=== PATIENT | male | born 1955 | race Caucasian/White ===

== ENCOUNTER → 2017-02-19 | Outpatient (CLI) | payer OTHER ==
--- NOTE | 2017-02-19 13:38 | RAD ---
Indication: Chronic sinusitis. Axial imaging through the paranasal sinuses was performed without contrast. Sagittal and coronal reformations were also performed. The frontal sinus is clear. Ethmoid air cells and sphenoid sinus are clear. Mastoids are well aerated. The maxillary sinuses are clear apart from trace mucosal thickening on the right. The ostiomeatal complexes are patent bilaterally. The nasal septum is midline. Impression: No evidence of sinusitis. PQRS Compliance Statement: One or more of the following individualized dose reduction techniques were utilized for this examination: 1. Automated exposure control 2. Adjustment of the mA and/or kV according to patient size 3. Use of iterative reconstruction technique
== END | disposition home or self-care (01) ==
LOC: CT 13:06
PROVIDERS: ATTEND Otolaryngology
DX: J32.9 Chronic sinusitis, unspecified (principal)
CPT/HCPCS: 70486

== ENCOUNTER 2020-03-14 16:39 | Emergency (ER) | payer SELFPAY ==
[~2020-03-14] VITALS: Ht 167.6 cm; Wt 57.6 kg
--- NOTE | 2020-03-14 17:11 | PHYS DOC ---
Past History Past Medical History: Anxiety, COPD, CVA (EDUARDO PUCKETT DO) Past Surgical History: No Surgical History (EDUARDO PUCKETT DO) Alcohol Use: Occasionally Additional Alcohol Information: one beer a night (EDUARDO PUCKETT DO) General Adult EDM: Chief Complaint: LOWER EXT PAIN HPI: HPI: Patient is a 64-year-old male who presented to ER today for evaluation of right leg swelling and pain for about 5 days. Patient denies any injury, no trouble breathing, no cough. Patient has history of COPD, he is a smoker. Patient denies any history of blood clot disorder, no recent history of travel or operation. Patient denies any fever, no chest pain. Patient denies any personal or family history of blood clot disorder. (EDUARDO PUCKETT DO) Review of Systems: Review of Systems: Constitutional: Denies fever or chills Eyes: Denies change in visual acuity HENT: Denies nasal congestion or sore throat Respiratory: Denies cough or shortness of breath Cardiovascular: Denies chest pain or edema GI: Denies abdominal pain, nausea, vomiting, bloody stools or diarrhea : Denies dysuria Musculoskeletal: Denies back pain, POSITIVE FOR RIGHT LEG SWELLING AND PAIN Integument: Denies rash Neurologic: Denies headache, focal weakness or sensory changes Endocrine: Denies polyuria or polydipsia Lymphatic: Denies swollen glands Psychiatric: Denies depression or anxiety (EDUARDO PUCKETT DO) Heart Score: Risk Factors: Risk Factors: DM, Current or recent (<one month) smoker, HTN, HLP, family history of CAD, obesity. Risk Scores: Score 0 - 3: 2.5% MACE over next 6 weeks - Discharge Home Score 4 - 6: 20.3% MACE over next 6 weeks - Admit for Clinical Observation Score 7 - 10: 72.7% MACE over next 6 weeks - Early Invasive Strategies (EDUARDO PUCKETT DO) Allergies: Allergies: Allergies Uncoded Allergies Type Severity Reaction Last Updated Verified steriods Allergy Unknown 03/14/20 (EDUARDO PUCKETT DO) Physical Exam: PE: Constitutional: Well developed, well nourished, no acute distress, non-toxic appearance. [] HENT: Normocephalic, atraumatic, bilateral external ears normal, oropharynx moist, no oral exudates, nose normal. [] Eyes: PERRLA, EOMI, conjunctiva normal, no discharge. [] Neck: Normal range of motion, no tenderness, supple, no stridor. [] Cardiovascular:Heart rate regular rhythm, no murmur [] Lungs & Thorax: Bilateral breath sounds clear to auscultation [] Abdomen: Bowel sounds normal, soft, no tenderness, no masses, no pulsatile masses. [] Skin: Warm, dry, no erythema, no rash. [] Back: No tenderness, no CVA tenderness. [] Extremities: The entire right leg, ankle and foot are swollen, tender to palpation, right calf is swollen and tender, mild erythema with pitting edema. There is palpable dorsalis pedis pulse, the swelling is spreading to just below right knee. The right knee joint is stable. Neurologic: Alert and oriented X 3, normal motor function, normal sensory function, no focal deficits noted. [] Psychologic: Affect normal, judgement normal, mood normal. [] (EDUARDO PUCKETT DO) Current Patient Data: Vital Signs: Vital Signs Date Time Temp Pulse Resp B/P (MAP) Pulse Ox O2 Delivery O2 Flow Rate FiO2 03/14/20 16:53 98.7 88 18 171/105 (127 99 Room Air (EDUARDO PUCKETT DO) EKG: EKG: [] (EDUARDO PUCKETT DO) Radiology/Procedures: Radiology/Procedures: [] (EDUARDO PUCKETT DO) Radiology/Procedures: [place] [address] IMAGING REPORT Signed PATIENT: ARNOLD CARTAGENA ACCOUNT: [id number] : 1955 LOCATION: ER AGE: 64 SEX: M EXAM STATUS: REG ER ORD. PHYSICIAN: EDUARDO PUCKETT DO REASON: RIGHT LEG SWELLING AND PAIN FOR 5 DAYS PROCEDURE: VENOUS LOWER EXT BILATERAL Exam: Bilateral lower extremity venous duplex study INDICATION: Right leg swelling and pain for 5 days TECHNIQUE: Using a combination of real-time ultrasound imaging and color-flow and pulse Doppler imaging techniques along with graded compression and augmentation, duplex evaluation of the deep venous systems of bilateral lower extremity was performed. Multiple images were obtained. Findings: Occlusive thrombus noted throughout the superficial femoral vein, femoral vein, popliteal vein and posterior tibial vein on the right. There is no sonographic evidence for deep venous thrombosis involving the visualized deep venous structures of the left lower extremity. IMPRESSION: 1. Occlusive thrombus throughout the right lower extremity. 2. No acute DVT in the left lower extremities. FOR INTERNAL CODING PURPOSES Critical result: Findings discussed with Alex at 03/14/2020 5:50 PM. RESULT CODE: (C) Electronically signed by: Tiffany Dennis MD (03/14/2020 5:51 PM) [id number] DICTATED AND SIGNED BY: TIFFANY DENNIS MD DATE: 03/14/20 175 CC: COURTNEY TREVIZO MD; EDUARDO PUCKETT DO ~ [address] [address] IMAGING REPORT Signed PATIENT: ARNOLD CARTAGENA ACCOUNT: [id number] : 1955 LOCATION: ER AGE: 64 SEX: M EXAM STATUS: REG ER ORD. PHYSICIAN: BERYL GARCIA MD REASON: dyspnea, DVT PROCEDURE: CT ANGIOGRAPHY CHEST CT ANGIOGRAPHY CHEST INDICATION: Reason: dyspnea, DVT / Spl. Instructions: GFR 63 / History: . Comparison: CT chest 07/03/2012. TECHNIQUE: Following the uneventful administration of intravenous contrast, 100 cc Omnipaque 350, axial CT sections were obtained through the lungs and upper abdomen. Multiplanar reconstructions and MIP images were obtained. PQRS compliance statement: One or more of the following individualized dose reduction techniques were utilized for this examination: 1. Automated exposure control 2. Adjustment of the mA and/or kV according to patient size 3. Use of iterative reconstruction technique FINDINGS: Pulmonary arteries: No evidence of pulmonary thromboembolic disease. Lungs and Airways: Biapical subpleural opacities, greater on the left. Paraseptal and centrilobular emphysema. No abnormality of the central airways. Pleura: The pleural spaces are normal. Heart and Mediastinum: The visualized thyroid is normal in size and attenuation. No axillary or supraclavicular lymphadenopathy. Mildly enlarged right hilar lymph nodes, for example right hilar lymph node measuring 1.0 cm (series 4 image 80). The cardiac size. No pericardial effusion. Coronary artery atherosclerotic disease. Atherosclerosis of the thoracic aorta. Ectatic descending thoracic aorta measures 3.6 cm in diameter at the diaphragmatic hiatus. Abdomen: Hepatic and splenic granulomas. Bones and Soft Tissues: Degenerative changes of the spine.. IMPRESSION: 1. No evidence of pulmonary thromboembolic disease. 2. Biapical opacities, greater on the left. While this probably represents asymmetric subpleural fibrosis, a 3-6 month follow-up chest CT should be considered to ensure stability given emphysema. 3. Mildly enlarged right hilar lymph nodes of indeterminate etiology. Attention on follow-up imaging. Electronically signed by: Lupillo Gibbons MD (03/14/2020 6:41 PM) [facility] (BERYL GARCIA MD) Course & Med Decision Making: Course & Med Decision Making Pertinent Labs and Imaging studies reviewed. (See chart for details) Patient's care is endorsed to Dr. Olegario Johnson at shift change, awaiting for lab work and venous doppler. (EDUARDO PUCKETT DO) Course & Med Decision Making See Dr. Puckett notes for details. Pt. Admit to Dr. Ellsworth/ Dr. Noriega oncjs - observation status, start on Lovenox 60 bid, and XCarelto 20 mg this evening meal. Plan continue 20 mg daily with evening meal x 21 days, then 10 mg daily x 6 months. Reduce risk behaviors tobacco use ect. Impression: 1. Occlusive DVT Rt. Lower Ext. 2. Dyspnea 3. Emphysema 4. Hilar Adenopathy Rt 5. Anemia Hgb- 12.7 (BERYL GARCIA MD) Dragon Disclaimer: Dragon Disclaimer: This electronic medical record was generated, in whole or in part, using a voice recognition dictation system. (EDUARDO PUCKETT DO) Departure Departure: Impression: Primary Impression: Right leg swelling Condition: STABLE Referrals: COURTNEY TREVIZO MD (PCP) Scripts Rivaroxaban (XARELTO) 20 Mg Tablet 20 MG PO DAILYWSUP for dvt for 21 Days, #21 TAB Prov: BERYL GARCIA MD 03/14/20 Rivaroxaban (XARELTO) 10 Mg Tablet 10 MG PO DAILYWSUP for dvt prophylaxis for 90 Days, #90 TAB Prov: BERYL GARCIA MD 03/14/20 Dragon Disclaimer This chart was dictated in whole or in part using Voice Recognition software in a busy, high-work load, and often noisy Emergency Department environment. It may contain unintended and wholly unrecognized errors or omissions. (BERYL GARCIA MD) EDUARDO PUCKETT DO Mar 14, 2020 17:11 BERYL GARCIA MD Mar 14, 2020 19:06
[2020-03-14 17:27] LABS: BASO # 0.1 x10^3/uL (0.0-0.2); BASO % 1 % (0-3); EOS # 0.2 x10^3/uL (0.0-0.7); EOS % 3 % (0-3); HEMATOCRIT 37.7 % (39.0-53.0); HEMOGLOBIN 12.7 g/dL (13.0-17.5); LYMPH # 1.3 x10^3/uL (1.0-4.8); LYMPH % 19 % (24-48); MEAN CORPUSCULAR HEMOGLOBIN 32 pg (25-35); MEAN CORPUSCULAR HGB CONC 34 g/dL (31-37); MEAN CORPUSCULAR VOLUME 94 fL (79-100); MONO # 0.7 x10^3/uL (0.0-1.1); MONO % 11 % (0-9); NEUT # 4.5 x10^3uL (1.8-7.7); NEUT % 66 % (31-73); PLATELET COUNT 356 x10^3/uL (140-400); RED CELL DISTRIBUTION WIDTH 13.8 % (11.5-14.5); WHITE BLOOD COUNT 6.9 x10^3/uL (4.0-11.0)
[2020-03-14 17:39] LABS: CALCIUM 9.4 mg/dL (8.5-10.1); CREATININE 1.2 mg/dL (0.7-1.3); GFR 61.1; POTASSIUM 4.3 mmol/L (3.5-5.1)
[2020-03-14 17:45] LABS: ALBUMIN 3.2 g/dL (3.4-5.0); ALBUMIN/GLOBULIN RATIO 0.8 (1.0-1.7); TOTAL BILIRUBIN 0.4 mg/dL (0.2-1.0); TOTAL PROTEIN 7.2 g/dL (6.4-8.2)
--- NOTE | 2020-03-14 17:54 | RAD ---
Exam: Bilateral lower extremity venous duplex study INDICATION: Right leg swelling and pain for 5 days TECHNIQUE: Using a combination of real-time ultrasound imaging and color-flow and pulse Doppler imaging techniques along with graded compression and augmentation, duplex evaluation of the deep venous systems of bilateral lower extremity was performed. Multiple images were obtained. Findings: Occlusive thrombus noted throughout the superficial femoral vein, femoral vein, popliteal vein and posterior tibial vein on the right. There is no sonographic evidence for deep venous thrombosis involving the visualized deep venous structures of the left lower extremity. IMPRESSION: 1. Occlusive thrombus throughout the right lower extremity. 2. No acute DVT in the left lower extremities. FOR INTERNAL CODING PURPOSES Critical result: Findings discussed with Alex at 03/14/2020 5:50 PM. RESULT CODE: (C) Electronically signed by: Tiffany Vasquez MD (03/14/2020 5:51 PM) [id number]
[2020-03-14] MEDS ORDERED: IV RINGERS SOLUTION,LACTATED 1,000 ML IV ONE (18:00)
[2020-03-14] MEDS ORDERED: IOHEXOL 350 MG/ML 100 ML VIAL. IV ONE (18:15)
[2020-03-14] MEDS ORDERED: CONTRAST GIVEN MC PRN (18:15)
--- NOTE | 2020-03-14 18:44 | RAD ---
CT ANGIOGRAPHY CHEST INDICATION: Reason: dyspnea, DVT / Spl. Instructions: GFR 63 / History: . Comparison: CT chest 07/03/2012. TECHNIQUE: Following the uneventful administration of intravenous contrast, 100 cc Omnipaque 350, axial CT sections were obtained through the lungs and upper abdomen. Multiplanar reconstructions and MIP images were obtained. [facility] compliance statement: One or more of the following individualized dose reduction techniques were utilized for this examination: 1. Automated exposure control 2. Adjustment of the mA and/or kV according to patient size 3. Use of iterative reconstruction technique FINDINGS: Pulmonary arteries: No evidence of pulmonary thromboembolic disease. Lungs and Airways: Biapical subpleural opacities, greater on the left. Paraseptal and centrilobular emphysema. No abnormality of the central airways. Pleura: The pleural spaces are normal. Heart and Mediastinum: The visualized thyroid is normal in size and attenuation. No axillary or supraclavicular lymphadenopathy. Mildly enlarged right hilar lymph nodes, for example right hilar lymph node measuring 1.0 cm (series 4 image 80). The cardiac size. No pericardial effusion. Coronary artery atherosclerotic disease. Atherosclerosis of the thoracic aorta. Ectatic descending thoracic aorta measures 3.6 cm in diameter at the diaphragmatic hiatus. Abdomen: Hepatic and splenic granulomas. Bones and Soft Tissues: Degenerative changes of the spine.. IMPRESSION: 1. No evidence of pulmonary thromboembolic disease. 2. Biapical opacities, greater on the left. While this probably represents asymmetric subpleural fibrosis, a 3-6 month follow-up chest CT should be considered to ensure stability given emphysema. 3. Mildly enlarged right hilar lymph nodes of indeterminate etiology. Attention on follow-up imaging. Electronically signed by: Lupillo Gibbons MD (03/14/2020 6:41 PM) [facility]
[2020-03-14] MEDS ORDERED: ENOXAPARIN ** NOTE DOSE ** SYRINGE SQ ONE (19:15)
[2020-03-14] MEDS ORDERED: ACETAMINOPHEN 325 MG TABLET PO PRN (19:30)
[2020-03-14] MEDS ORDERED: ONDANSETRON PF 4 MG/2 ML VIAL. IVP PRN (19:30)
--- NOTE | 2020-03-14 19:35 | EKG ---
[address] [address] Test Date: 2020-03-14 Test Time: 19:30:48 Pat Name: ARNOLD CARTAGENA Department: Room: Gender: M [employer]: : 1955 Requested By: BERYL GARCIA Order Number: [id number] Reading MD: Devan Mendoza Measurements Intervals [place] Rate: 84 P: 51 NM: 176 QRS: -76 QRSD: 86 T: 35 QT: 360 QTc: 429 Interpretive Statements SINUS RHYTHM ABNORMAL LEFT AXIS DEVIATION LEFT ANTERIOR FASCICULAR BLOCK ABNORMAL ECG RI6.02 No previous ECG available for comparison Electronically Signed On 03-15-2020 12:05:23 CDT by Devan Mendoza
[2020-03-14 19:39] VITALS: BP 184/108
[2020-03-14] MEDS ORDERED: RIVA20TA2 PO (19:43)
[2020-03-14] MEDS ORDERED: RIVA10TA PO (19:43)
[2020-03-14] MEDS ORDERED: IPRATRPIUM/ALBUTEROL 0.5/2.5MG 3 ML NEBU. NEB SCH (20:00)
[2020-03-15] MEDS ORDERED: ENOXAPARIN ** NOTE DOSE ** SYRINGE SQ ONE (06:00)
[2020-03-15] MEDS ORDERED: RIVAROXABAN 10 MG TABLET. PO SCH (17:00)
== END 2020-03-14 19:40 | disposition left against medical advice (07) ==
LOC: ER 16:39
DX: I82.401 Acute embolism and thrombosis of unspecified deep veins of right lower extremity (principal); M79.89 Other specified soft tissue disorders; M79.661 Pain in right lower leg; L53.9 Erythematous condition, unspecified; F41.9 Anxiety disorder, unspecified; J44.9 Chronic obstructive pulmonary disease, unspecified; D64.9 Anemia, unspecified; R59.9 Enlarged lymph nodes, unspecified; Z86.73 Personal history of transient ischemic attack (TIA), and cerebral infarction without residual deficits; Z88.8 Allergy status to other drugs, medicaments and biological substances
CPT/HCPCS: 36415; 71275; 80053; 83735; 85025; 85610; 85730; 93005; 93970; 96372; 99285; J1650; J7120; Q9967

== ENCOUNTER 2020-03-18 11:11 | Emergency (ER) | payer SELFPAY ==
[~2020-03-18] VITALS: Ht 167.6 cm; Wt 57.6 kg
[~2020-03-18 11:11] MED LIST: RIVA10TA PO; RIVA20TA2 PO
[2020-03-18 11:15] VITALS: BP 141/96
[2020-03-18] MEDS ORDERED: HYDR-3165 PO (11:28)
--- NOTE | 2020-03-18 11:29 | PHYS DOC ---
Past History Past Medical History: Anxiety, COPD, CVA Past Surgical History: No Surgical History Alcohol Use: Occasionally General Adult EDM: Chief Complaint: LOWER EXTREMITY SWELLING HPI: HPI: Patient is a 64-year-old male who presents with report of increased swelling and pain to his right lower leg that occurred yesterday after being outside working on his jeep for a while. Patient was recently diagnosed with right lower extremity DVT and was started on Eliquis. Patient states that after working outside noticing the swelling, he went inside and elevated his legs and he states that most of the swelling has resolved. He does indicate that he still has some pain in his leg however. He denies any cough, chest pain or shortness of breath. [] Review of Systems: Review of Systems: Constitutional: Denies fever or chills Respiratory: Denies cough or shortness of breath Cardiovascular: Denies chest pain or edema Musculoskeletal: Complains of right leg pain Integument: Denies rash Neurologic: Denies headache, focal weakness or sensory changes Heart Score: Risk Factors: Risk Factors: DM, Current or recent (<one month) smoker, HTN, HLP, family history of CAD, obesity. Risk Scores: Score 0 - 3: 2.5% MACE over next 6 weeks - Discharge Home Score 4 - 6: 20.3% MACE over next 6 weeks - Admit for Clinical Observation Score 7 - 10: 72.7% MACE over next 6 weeks - Early Invasive Strategies Allergies: Allergies: Allergies Uncoded Allergies Type Severity Reaction Last Updated Verified steriods Allergy Unknown 03/14/20 Physical Exam: PE: Constitutional: Well developed, well nourished, no acute distress, non-toxic appearance. [] Cardiovascular: Regular rate and rhythm [] Lungs & Thorax: Bilateral breath sounds clear to auscultation [] Skin: Warm, dry, no erythema, no rash. [] Extremities: Right lower leg demonstrates 2+ pitting edema with mild calf tenderness. [] EKG: EKG: [] Radiology/Procedures: Radiology/Procedures: [] Course & Med Decision Making: Course & Med Decision Making Pertinent Labs and Imaging studies reviewed. (See chart for details) [] Dragon Disclaimer: Dragon Disclaimer: This electronic medical record was generated, in whole or in part, using a voice recognition dictation system. Departure Departure: Impression: Primary Impression: DVT (deep venous thrombosis) Qualified Codes: I82.401 - Acute embolism and thrombosis of unspecified deep veins of right lower extremity Disposition: 01 HOME/RESIDENCE PRIOR TO ADM Condition: STABLE Referrals: COURTNEY TREVIZO MD (PCP) Patient Instructions: Deep Vein Thrombosis Scripts Hydrocodone Bit/Acetaminophen (NORCO 5-325 TABLET) 1 Each Tablet 1 TAB PO PRN Q6HRS PRN for PAIN, #12 TAB 0 Refills Prov: DURGA ROSADO Jr. DO 03/18/20 DURGA ROSADO Jr. DO Mar 18, 2020 11:28
== END 2020-03-18 11:33 | disposition home or self-care (01) ==
LOC: ER 11:11
DX: I82.401 Acute embolism and thrombosis of unspecified deep veins of right lower extremity (principal); J44.9 Chronic obstructive pulmonary disease, unspecified; F41.9 Anxiety disorder, unspecified; Z86.73 Personal history of transient ischemic attack (TIA), and cerebral infarction without residual deficits; Z88.8 Allergy status to other drugs, medicaments and biological substances
CPT/HCPCS: 99283

== ENCOUNTER 2021-09-14 14:52 | Emergency (ER) | payer MEDICARE ==
[~2021-09-14] VITALS: Ht 167.6 cm; Wt 59.7 kg
[~2021-09-14 14:52] MED LIST changes: +HYDR-3165 PO
[2021-09-14 15:19] VITALS: BP 123/79
[2021-09-14] MEDS ORDERED: AMOX1TAB61 PO (15:34)
--- NOTE | 2021-09-14 15:35 | PHYS DOC ---
Past History Past Medical History: Anxiety, COPD, CVA Past Surgical History: No Surgical History Smoking: Less than 1pk/day, Greater than 1 pack/day Alcohol Use: Occasionally General Adult EDM: Chief Complaint: CONGESTION HPI: HPI: 66 year old male presents to the ED with cc of sinus congestion. Pt reports this sinus infection started 2 weeks ago. Pt's ENT physician prescribed prednisone for chronic sinusitis. Started first dose of prednisone yesterday, had no alleviation of symptoms. Pt states he feels increased pressure behind both of his eyes, which prompted him to get medical evaluation in the ED. Pt is in no acute distress, resting comfortably in a chair. Review of Systems: Review of Systems: Constitutional: Denies fever or chills Eyes: Denies change in visual acuity, redness. Reports pressure behind eyes. HENT: Reports nasal congestion. Respiratory: Denies cough or shortness of breath Cardiovascular: Denies chest pain or palpitations GI: Denies abdominal pain, nausea, vomiting, or diarrhea : Denies dysuria or hematuria Musculoskeletal: Denies back pain or joint pain Integument: Denies rash or skin lesions Neurologic: Denies headache, focal weakness or sensory changes Allergies: Allergies: Allergies Uncoded Allergies Type Severity Reaction Last Updated Verified steriods Allergy Unknown 03/14/20 Physical Exam: PE: Constitutional: Well developed, well nourished, no acute distress, non-toxic appearance HENT: Normocephalic, atraumatic Eyes: Conjunctiva normal, no discharge Neck: Normal range of motion, no tenderness, supple, no meningeal signs Lungs & Thorax: Equal chest rise and fall, no respiratory distress Cardiovascular: Heart rate normal and regular rhythm Abdomen: Soft, no tenderness Skin: Warm, dry, no erythema, no rash Back: No tenderness, no CVA tenderness Extremities: No tenderness, ROM intact, no edema Neurologic: Alert and oriented X 3, no focal deficits noted Psychologic: Affect normal, judgement normal Current Patient Data: Vital Signs: Vital Signs Date Time Temp Pulse Resp B/P (MAP) Pulse Ox O2 Delivery O2 Flow Rate FiO2 09/14/21 15:19 97.5 105 16 123/79 (94) 100 Room Air EKG: EKG: [] Radiology/Procedures: Radiology/Procedures: [] Heart Score: C/O Chest Pain: No Course & Med Decision Making: Course & Med Decision Making 66 year old male presents to the ED with HPI and physical presentation consistent with acute on chronic sinusitis. Pt recently started on steroids by PCP without significant improvement. Prescribed antibiotics for management of sinusitis. Patient stable for discharge home with outpatient follow-up with PCP and ENT. Discussed findings and plan with patient, who acknowledges understanding and agreement. Jesús Disclaimer: Dragbouchra Disclaimer: This electronic medical record was generated, in whole or in part, using a voice recognition dictation system. Departure Departure: Impression: Primary Impression: Sinusitis Qualified Codes: J01.91 - Acute recurrent sinusitis, unspecified Disposition: HOME / SELF CARE / HOMELESS Condition: STABLE Referrals: COURTNEY TREVIZO MD (PCP) Patient Instructions: Sinusitis, [id number] Scripts Amoxicillin/Potassium Clav (AUGMENTIN 875-125 TABLET) 1 Each Tablet 1 TAB PO BID for sinusitis for 7 Days, #14 TAB 0 Refills Prov: CEFERINO CARLSON DO 09/14/21 CEFERINO CARLSON DO Sep 14, 2021 15:35
== END 2021-09-14 15:57 | disposition home or self-care (01) ==
LOC: ER 14:52
DX: J32.9 Chronic sinusitis, unspecified (principal); J44.9 Chronic obstructive pulmonary disease, unspecified; F17.200 Nicotine dependence, unspecified, uncomplicated; Z86.73 Personal history of transient ischemic attack (TIA), and cerebral infarction without residual deficits
CPT/HCPCS: 99283-25